=== PATIENT | female | born 1985 | race Caucasian/White ===

== ENCOUNTER 2018-10-19 13:26 | Emergency (ER) | payer BC ==
[~2018-10-19] VITALS: Ht 170.2 cm; Wt 137.0 kg
[2018-10-19 13:26] VITALS: BP_SYST 124
[2018-10-19] MEDS ORDERED: NACL 0.9% 1,000 ML IV ONE (13:45)
[2018-10-19] MEDS ORDERED: MORPHINE 2 MG/ML INJ. SYRINGE IVP ONE (14:00)
[2018-10-19] MEDS ORDERED: DIPHENHYDRAMINE INJ 50 MG/ML VIAL IVP ONE (14:00)
[2018-10-19 14:18] LABS: BASOPHILS # (AUTO) 0.1 K/uL (0.0-0.2); BASOPHILS % (AUTO) 0.7 % (0.0-2.0); EOSINOPHILS # (AUTO) 0.2 K/uL (0.0-0.4); EOSINOPHILS % (AUTO) 1.4 % (0.0-4.0); HEMATOCRIT 27.5 % (36-48); HEMOGLOBIN 9.1 g/dL (12.0-16.0); LYMPHOCYTES # (AUTO) 5.4 K/uL (1.0-5.5); LYMPHOCYTES % (AUTO) 30.6 % (20.5-51.5); MEAN CORPUSCULAR HEMOGLOBIN 30 pg (27-31); MEAN CORPUSCULAR HGB CONC 33 % (32-36); MEAN CORPUSCULAR VOLUME 90 fL (79.0-98.0); MONOCYTES # (AUTO) 0.9 K/uL (0.0-1.0); MONOCYTES % (AUTO) 5.3 % (1.7-9.3); NEUTROPHILS # (AUTO) 10.9 K/uL (1.8-7.7); PLATELET COUNT (AUTO) 490 K/uL (130-430); RED BLOOD CELL COUNT(AUTO) 3.05 MIL/uL (4.2-6.2); RED CELL DISTRIBUTION WIDTH 13.3 % (9.0-15.0); WHITE BLOOD COUNT (AUTO) 17.7 K/uL (4.8-10.8)
[2018-10-19 14:27] LABS: CALCIUM 9.1 mg/dL (8.4-11.0); CREATININE 0.76 mg/dL (0.55-1.30); POTASSIUM 3.5 mmol/L (3.5-5.1)
[2018-10-19 14:32] LABS: ALBUMIN 3.3 g/dL (3.4-4.8); TOTAL BILIRUBIN 0.2 mg/dL (0.0-1.0)
[2018-10-19] MEDS ORDERED: cefTRIAXone 1 GM IVPB PREMIX 50 ML IV ONE (15:15)
[2018-10-19 16:28] LABS: BILIRUBIN,URINE NEGATIVE (NEGATIVE); BLOOD, URINE 2+ (NEGATIVE); CLARITY/URINE HAZY (CLEAR); COLOR,URINE YELLOW (YELLOW); GLUCOSE,URINE NEGATIVE (NEGATIVE); KETONES,URINE NEGATIVE (NEGATIVE); LEUKOCYTE ESTERASE ,URINE NEGATIVE (NEGATIVE); NITRITE, URINE NEGATIVE (NEGATIVE); PROTEIN URINE NEGATIVE (NEGATIVE); UROBILINOGEN,URINE 0.2 (0.2-1.0)
[2018-10-19 16:52] LABS: BACTERIA,URINE MODERATE /HPF (None Seen); MUCUS,URINE 2+ /LPF (None Seen)
[2018-10-19 17:58] VITALS: BP_SYST 134
== END 2018-10-19 17:58 | disposition home or self-care (01) ==
LOC: SED 13:26
DX: K60.2 Anal fissure, unspecified (principal); N39.0 Urinary tract infection, site not specified; D64.9 Anemia, unspecified; R19.7 Diarrhea, unspecified; R03.0 Elevated blood-pressure reading, without diagnosis of hypertension; Z88.5 Allergy status to narcotic agent; Z90.49 Acquired absence of other specified parts of digestive tract
CPT/HCPCS: 36415; 74176; 80053; 81000; 81025; 82272; 83690; 85025; 87040; 87086; 96361; 96365; 96375; 99284; J0696; J1200; J2270; J7030

== ENCOUNTER 2018-11-07 15:19 | Inpatient (IN) | payer BC ==
[~2018-11-07] VITALS: Ht 170.2 cm; Wt 135.6 kg
[2018-11-07 15:39] VITALS: BP_SYST 111
--- NOTE | 2018-11-07 15:44 | NUR ---
Patient to ER bed 2 to gown for evaluation. Side rails up. Report given to Bill STAPLES.
--- NOTE | 2018-11-07 16:00 | NUR ---
PT PRESENTS TO ED FOR EVALAUTION OF LOW H&H. PT H/O ANEMIA.
--- NOTE | 2018-11-07 16:05 | NUR ---
ER at bedside examining patient.
--- NOTE | 2018-11-07 16:40 | NUR ---
# 20 gauge angiocath placed to LAC. Use of asceptic technique. Opsite placed over site. Blood return noted. Flushed with 10 cc of normal saline. No evidence of infiltration noted. Patient tolerated well.
[2018-11-07 17:19] LABS: PROTHROMBIN TIME 10.4 SECS (9.5-12.5)
[2018-11-07 17:21] LABS: CALCIUM 8.7 mg/dL (8.4-11.0); CREATININE 0.73 mg/dL (0.55-1.30); POTASSIUM 3.5 mmol/L (3.5-5.1)
[2018-11-07 17:23] LABS: ALBUMIN 2.8 g/dL (3.4-4.8); TOTAL BILIRUBIN 0.2 mg/dL (0.0-1.0)
[2018-11-07 17:25] LABS: BASOPHILS # (AUTO) 0.1 K/uL (0.0-0.2); BASOPHILS % (AUTO) 0.4 % (0.0-2.0); EOSINOPHILS # (AUTO) 0.2 K/uL (0.0-0.4); EOSINOPHILS % (AUTO) 1.2 % (0.0-4.0); LYMPHOCYTES % (AUTO) 25.8 % (20.5-51.5); MEAN CORPUSCULAR HEMOGLOBIN 28 pg (27-31); MEAN CORPUSCULAR HGB CONC 31 % (32-36); MEAN CORPUSCULAR VOLUME 90 fL (79.0-98.0); MONOCYTES # (AUTO) 0.7 K/uL (0.0-1.0); MONOCYTES % (AUTO) 4.6 % (1.7-9.3); NEUTROPHILS # (AUTO) 10.4 K/uL (1.8-7.7); PLATELET COUNT (AUTO) 543 K/uL (130-430); RED CELL DISTRIBUTION WIDTH 16.8 % (9.0-15.0); WHITE BLOOD COUNT (AUTO) 15.4 K/uL (4.8-10.8)
[2018-11-07 17:28] LABS: HEMOGLOBIN 6.8 g/dL (12.0-16.0)
[2018-11-07 17:29] LABS: HEMATOCRIT 21.7 % (36-48)
--- NOTE | 2018-11-07 18:02 | NUR ---
CONSENT FOR BLOOD SIGNED
--- NOTE | 2018-11-07 18:03 | NUR ---
Patient will be admitted to care of . Admitted to MED/SURG unit. Will go to room 124A. Belongings list completed. Summary report printed. Report will be given at bedside.
--- NOTE | 2018-11-07 18:33 | NUR ---
CONSULTATION PAGED REASON FOR CONSULTATION:GI BLEED WAS CONSULT CALLED?Y PERSON WHO WAS NOTIFIED:KYM LECHGUA CONSULTING PHYSICIAN:DOT G[employer]ING ( LEATHER PATCHER) CONTOUR SANDER SPECIALTY:GI CONTOUR SANDER PHONE NUMBER:[phone] REQUESTING PHYSICIAN:NAMRATA PEÑALOZA
--- NOTE | 2018-11-07 18:35 | NUR ---
admission: Received from ER on a gurney with the diagnosis of GI bleed. Patient is oriented x4. Oriented to room. Call light within reach.
[2018-11-07 18:50] VITALS: BP_SYST 127
--- NOTE | 2018-11-07 18:50 | NUR ---
OPENING NOTES, RECEIVED PT FROM E.R. PT IS AAOX4, DENIES PAIN. NO SOB, PT VITALS WNL. PT IS PALE. ADMITTED FOR LOW HGB OF 6.8. PT WILL NEED 2 UNITS OF PRBC. PT PROVIDED WITH WATER AND JELLO AND JUICE. SAFETY PRECAUTION IN PLACE, CALL LIGHT IN REACH. BED IN LOW POSITION. CALL LIGHT IN REACH. ENCOURAGED TO CALL NURSES FOR ASSIST AND PAIN MEDS. WILL ENDORSE TO NIGHT NURSE.
--- NOTE | 2018-11-07 19:10 | NUR ---
PATIENT ENDORSED TO NIGHT RN TANK. INFORMED TANK THAT PT ADMISSION ASSESSMENT HAS NOT BEEN DONE AND PT NEEDS TO BE TRANSFUSION OF 2 UNITS RBC.
[2018-11-07 19:44] LABS: BILIRUBIN,URINE NEGATIVE (NEGATIVE); BLOOD, URINE NEGATIVE (NEGATIVE); CLARITY/URINE CLEAR (CLEAR); COLOR,URINE YELLOW (YELLOW); GLUCOSE,URINE NEGATIVE (NEGATIVE); KETONES,URINE NEGATIVE (NEGATIVE); LEUKOCYTE ESTERASE ,URINE NEGATIVE (NEGATIVE); NITRITE, URINE NEGATIVE (NEGATIVE); PROTEIN URINE NEGATIVE (NEGATIVE); UROBILINOGEN,URINE 0.2 (0.2-1.0)
--- NOTE | 2018-11-07 19:52 | NUR ---
Pt is fully awake, alert and oriented x4. No acute distress noted and no c/o pain or discomfort. Saline locks in RAC and LAC are without any signs of infiltration. Awaiting availability of blood in Blood Bank for transfusion tonight. Fall and safety precautions are in place. Call light is with pt and bed is in the lowest and locked positions.
[2018-11-07 20:00] VITALS: BP_SYST 107
[2018-11-07] MEDS ORDERED: ONDANSETRON HCL 4 MG/2 ML VIAL IVP PRN (21:15)
[2018-11-07] MEDS ORDERED: ALBUTEROL SULFATE 0.083% 2.5 MG/3 ML VIAL.NEB INH PRN (21:15)
[2018-11-07 21:31] VITALS: BP_SYST 127
--- NOTE | 2018-11-07 21:46 | NUR ---
PAGED I PAGED DR. FAIRCHILD I SPOKE WITH BETH LECHUGA
--- NOTE | 2018-11-07 21:50 | NUR ---
Spoke with Dr. Reaves regarding the necessity for blood cultures prior to starting Rocephin and Dr. Reaves stated no blood cultures needed. She also changed Rocephin from Q 24hrs to one time dose only.
[2018-11-07] MEDS ORDERED: cefTRIAXone 1 GM IVPB PREMIX 50 ML IV ONE ×2 (21:59→22:00)
[2018-11-07] MEDS ORDERED: cefTRIAXone 1 GM IVPB PREMIX 50 ML IV SCH (22:00)
--- NOTE | 2018-11-07 22:00 | NUR ---
Pt informed she is to have nothing by mouth per MD's new order and pt verbalized understanding. NPO cone placed on pt's bedside table.
[2018-11-07] MEDS: NACL 0.9% 1,000 ML IV SCH (22:03)
[2018-11-07] MEDS: PANTOPRAZOLE SODIUM 40 MG/VIAL (PROTONIX) IVP SCH (22:04)
[2018-11-07] MEDS ORDERED: PANTOPRAZOLE SODIUM 40 MG/VIAL (PROTONIX) ONE (22:11)
--- NOTE | 2018-11-07 22:50 | NUR ---
BT INITIATION: Consent signed per agreeing to administration of blood. Blood has been typed and crossmatched. Blood sent from blood bank. Information on unit of blood checked against patient wristband at bedside by two nurses. All information matched. Patient informed of potential complications associated with blood transfusion. Informed of possible transfusion reaction symptoms. Aware of need to notify nurse at once of itching, shortness of breath, flushing, feeling of impending doom, or other symptoms not previously present. Vital signs taken within 5 minutes prior to initiation of transfusion. RN will remain with patient for first 15 minutes of transfusion at which time vital signs will be re-assessed. Addendum: 11/07/18 at 2306 by Chetna Manzo RN Blood transfusion started at 2245.
--- NOTE | 2018-11-07 23:00 | NUR ---
Blood transfusion is in progress and no transfusion reaction noted. VSS. IV site is without any signs of infiltration. Call light is with pt and bed is in the lowest and locked positions.
--- NOTE | 2018-11-08 | NUR ---
No distress noted at this time. Blood transfusion is in progress.
--- NOTE | 2018-11-08 01:30 | NUR ---
First unit PRBC completely transfused and no transfusion reaction noted.
--- NOTE | 2018-11-08 01:40 | NUR ---
Second unit PRBC transfusion started. IV site is without any signs of infiltration. Consent was signed per agreeing to administration of blood. Blood has been typed and crossmatched. Blood sent from blood bank. Information on unit of blood checked against patient wristband at bedside by two nurses. All information matched. Patient informed of potential complications associated with blood transfusion. Informed of possible transfusion reaction symptoms. Aware of need to notify nurse at once of itching, shortness of breath, flushing, feeling of impending doom, or other symptoms not previously present. Vital signs taken within 5 minutes prior to initiation of transfusion. RN will remain with patient for first 15 minutes of transfusion at which time vital signs will be re-assessed.
--- NOTE | 2018-11-08 01:55 | NUR ---
Second unit of PRBC transfusion is in progress and no transfusion reaction noted. VSS. IV site is without any signs of infiltration. Call light is with pt and bed is in the lowest and locked positions.
[2018-11-08 02:36] VITALS: BP_SYST 110
--- NOTE | 2018-11-08 04:15 | NUR ---
Second unit PRBC completely transfused and no transfusion reaction noted. IVF of NS was resumed at 125ml/hr. Fall and safety precautions are in place.
--- NOTE | 2018-11-08 06:25 | NUR ---
Pt is awake and resting quietly in bed. IVF is infusing well in LAC. No c/o pain or discomfort. Will endorse to day shift nurse.
[2018-11-08 06:31] LABS: ALBUMIN 2.4 g/dL (3.4-4.8); CALCIUM 7.9 mg/dL (8.4-11.0); CREATININE 0.71 mg/dL (0.55-1.30); TOTAL BILIRUBIN 0.4 mg/dL (0.0-1.0)
[2018-11-08 06:34] LABS: BASOPHILS # (AUTO) 0.1 K/uL (0.0-0.2); BASOPHILS % (AUTO) 0.5 % (0.0-2.0); EOSINOPHILS # (AUTO) 0.2 K/uL (0.0-0.4); EOSINOPHILS % (AUTO) 1.8 % (0.0-4.0); HEMATOCRIT 23.9 % (36-48); LYMPHOCYTES # (AUTO) 4.5 K/uL (1.0-5.5); LYMPHOCYTES % (AUTO) 32.8 % (20.5-51.5); MEAN CORPUSCULAR HEMOGLOBIN 30 pg (27-31); MEAN CORPUSCULAR HGB CONC 33 % (32-36); MEAN CORPUSCULAR VOLUME 90 fL (79.0-98.0); MONOCYTES % (AUTO) 7.1 % (1.7-9.3); NEUTROPHILS % (AUTO) 57.8 % (40.0-70.0); PLATELET COUNT (AUTO) 437 K/uL (130-430); RED BLOOD CELL COUNT(AUTO) 2.67 MIL/uL (4.2-6.2); RED CELL DISTRIBUTION WIDTH 16.5 % (9.0-15.0); WHITE BLOOD COUNT (AUTO) 13.8 K/uL (4.8-10.8)
[2018-11-08 07:35] LABS: HEMOGLOBIN 7.9 g/dL (12.0-16.0)
[2018-11-08 08:00] VITALS: BP_SYST 100
--- NOTE | 2018-11-08 08:00 | NUR ---
initial notes rec patient asleep but arousable to stimuli.ivf infusing well on the l ac. no infiltration noted. resp easy and unlabored. bed to the lowest position and side rails up and locked. call light within reached and knows when to call for assistance. denies pain.
--- NOTE | 2018-11-08 10:00 | NUR ---
rounds due meds given and seen by dr huerta and with orders.
--- NOTE | 2018-11-08 12:00 | NUR ---
rounds seen by dr clayton and with orders. ambulates on the hallway at intervals.
[2018-11-08] MEDS: PANTOPRAZOLE SODIUM 40 MG/VIAL (PROTONIX) IVP SCH ×2 (12:32→22:27)
[2018-11-08] MEDS: NACL 0.9% 1,000 ML IV SCH ×2 (12:32→13:11)
[2018-11-08 12:36] VITALS: BP_SYST 109
[2018-11-08] MEDS: LORazepam 2 MG/ML VIAL IVP PRN ×2 (12:51→18:14)
--- NOTE | 2018-11-08 14:00 | NUR ---
rounds seen by dr gallardo.
--- NOTE | 2018-11-08 15:40 | NUR ---
rounds blood transfusion started. explained to patient to watch out for blood transfusion reaction . checked blood with elizabeth rn at bedside.
--- NOTE | 2018-11-08 16:00 | NUR ---
rounds no untoward reaction noted form the blood transfusion. no sob noted.
[2018-11-08 16:03] VITALS: BP_SYST 112
--- NOTE | 2018-11-08 18:20 | NUR ---
rounds 2nd unit of blood was completed. no untoward reaction noted.
--- NOTE | 2018-11-08 18:40 | NUR ---
closingnotes 2nd unit of blood started. reviewed with patient re blood transfusion reaction. no sob noted. ambulated to the br. call light within reached.
--- NOTE | 2018-11-08 19:51 | NUR ---
Pt was received lying in bed fully awake, alert and oriented x4. No acute distress noted and no c/o pain or discomfort. Blood transfusion is in progress via LAC without any signs of infiltration at the IV site. No transfusion reaction noted. Pt was instructed on nothing by mouth after midnight for surgery tomorrow and pt verbalized understanding. Fall and safety precautions are in place. Call light is with pt and bed is in the lowest and locked positions.
[2018-11-08 20:00] VITALS: BP_SYST 118
--- NOTE | 2018-11-08 21:45 | NUR ---
PRBC completely transfused and no transfusion reaction noted. IV site is without any signs of infiltration. IVF of NS was resumed at 125ml/hr. Fall and safety precautions are in place.
[2018-11-09] VITALS (11 sets, daily range): BP systolic 108–138
--- NOTE | 2018-11-09 | NUR ---
IVF is infusing well in [facility]. Fall and safety precautions are in place.
[2018-11-09] MEDS: NACL 0.9% 1,000 ML IV SCH ×4 (02:07→21:11)
--- NOTE | 2018-11-09 02:30 | NUR ---
Sleeping without any distress. IVF is infusing well.
--- NOTE | 2018-11-09 04:30 | NUR ---
Sleeping comfortably in bed. Fall and safety precautions are in place. IVF is infusing well in [facility].
--- NOTE | 2018-11-09 06:30 | NUR ---
Pt is awake and resting comfortably in bed. IVF is infusing well in LAC. No c/o pain or discomfort at this time. Fall and safety precautions are in place. Will endorse to day shift nurse.
[2018-11-09] MEDS ORDERED: fentaNYL CITRATE/PF 100 MCG/2 ML AMP IVP PRN ×2 (09:00)
[2018-11-09] MEDS ORDERED: ONDANSETRON HCL 4 MG/2 ML VIAL IVP PRN (09:00)
--- NOTE | 2018-11-09 09:53 | NUR ---
11/09/2018 0954 This patient is sitting up in a chair. Relatives are at the bedside. She is alert and orientedX4, ambulatory. Vital signs are obtained: bp 138/85, HR 89, resp 20, temp 97.3, oxygen saturation 100. No s/s of distress. Labs reviewed for 11/08: wbc 13.8, h/h, 7.9/23.9 pt 10.4, INR 1.0. Surgery was phoned with abnormal results. The HS nurse stated that she had made an attempt prior to leaving this morning to reach the physician. No lab order for today. Staff in surgery stated that as soon as the anesthesiologist arrived, she would send him up to assess the patient.
[2018-11-09] MEDS: LORazepam 2 MG/ML VIAL IVP PRN (10:24)
[2018-11-09] MEDS: PANTOPRAZOLE SODIUM 40 MG/VIAL (PROTONIX) IVP SCH ×2 (10:29→22:03)
--- NOTE | 2018-11-09 10:30 | NUR ---
11/09/2018 1031 This patient requested ativan. She was given the prescribed dose. She is receiving the enema per the CN at this time.
[2018-11-09 11:00] LABS: BASOPHILS % (AUTO) 0.2 % (0.0-2.0); EOSINOPHILS # (AUTO) 0.3 K/uL (0.0-0.4); EOSINOPHILS % (AUTO) 2.2 % (0.0-4.0); HEMATOCRIT 31.1 % (36-48); HEMOGLOBIN 10.2 g/dL (12.0-16.0); LYMPHOCYTES # (AUTO) 3.4 K/uL (1.0-5.5); LYMPHOCYTES % (AUTO) 25.8 % (20.5-51.5); MEAN CORPUSCULAR HEMOGLOBIN 30 pg (27-31); MEAN CORPUSCULAR HGB CONC 33 % (32-36); MEAN CORPUSCULAR VOLUME 90 fL (79.0-98.0); MONOCYTES # (AUTO) 0.7 K/uL (0.0-1.0); MONOCYTES % (AUTO) 5.3 % (1.7-9.3); NEUTROPHILS # (AUTO) 8.8 K/uL (1.8-7.7); NEUTROPHILS % (AUTO) 66.5 % (40.0-70.0); PLATELET COUNT (AUTO) 466 K/uL (130-430); RED BLOOD CELL COUNT(AUTO) 3.45 MIL/uL (4.2-6.2); RED CELL DISTRIBUTION WIDTH 16.1 % (9.0-15.0); WHITE BLOOD COUNT (AUTO) 13.2 K/uL (4.8-10.8)
[2018-11-09] MEDS ORDERED: NA PHOS,M-B/NA PHOS,DI-BA 118 ML (FLEET ENEMA) RC ONE (11:00)
--- NOTE | 2018-11-09 11:52 | NUR ---
OR: Patient is picked up to OR via a bed with stable condition.
--- NOTE | 2018-11-09 12:00 | NUR ---
11/09/2018 1200 Received report from the CN that this patient was taken to surgery. She is off the unit at this time. Prior to leaving she received stat lab draw.
[2018-11-09] MEDS ORDERED: BUPIVACAINE LIPOSOME/PF 266 MG/20 ML VIAL INFIL ONE (13:56)
[2018-11-09] MEDS ORDERED: fentaNYL CITRATE/PF 100 MCG/2 ML AMP ONE (14:15)
[2018-11-09] MEDS ORDERED: HYDROmorphone 1 MG INJ. 1 MG/ML AMPUL IM PRN (14:15)
[2018-11-09] MEDS ORDERED: LR 1,000 ML IV.SOLN IV ONE (14:15)
[2018-11-09] MEDS ORDERED: CEFAZOLIN 2 GM IVPB PREMIX 50 ML IV ONE (14:15)
[2018-11-09] MEDS ORDERED: BUPIVACAINE /EPINEPHRINE/PF 0.25% 30 ML VIAL INJ ONE (14:15)
[2018-11-09] MEDS ORDERED: NS 50 ML BAG IV ONE (14:15)
[2018-11-09] MEDS ORDERED: MIDAZOLAM HCL 5 MG/ML VIAL (VERSED) IV ONE (14:15)
[2018-11-09] MEDS ORDERED: NS IRRIG SOLN 1000 ML IR ONE (14:15)
--- NOTE | 2018-11-09 15:10 | NUR ---
11/09/2018 1510 The CN has received report from the procedure nurse. The patient has returned to her room. No s/s of distress noted.
--- NOTE | 2018-11-09 15:38 | NUR ---
Dietitian Recommendations * Consider advance diet if/when medically appropriate (regular diet) ITZEL, RD Please refer to Nutrition Assessment for details. Addendum: 11/09/18 at [address] Amended: Links added.
[2018-11-09] MEDS: HYDROcodone/ACETAMIN 5-325 MG TAB (NORCO/ VICODIN) PO PRN (17:44)
--- NOTE | 2018-11-09 19:06 | NUR ---
11/09/20181899 This patient has received norco for pain. She states that her pain has come down to a 3 from a 5. Upon assessment of her IV, it may need replacing. The patient states that she will need to do it later. She had LR that was hanging to gravity since arriving from OR. There is an order that the IVF may be discontinued once the patient is tolerating diet/fluids, which she is. However, she will not be able to receive dilaudid should she need it for breakthrough pain until he IV is functioning. f/u with HS is planned. Also, the patient's father is saying that the mother has called to say that the pharmacy cannot fill the patient's paper prescription for norco because the pharmacy cannot read the dosage written on the prescription. This will need to be followed up with the physician tomorrow.
--- NOTE | 2018-11-09 19:30 | NUR ---
Late entry due to pt care Pt is lying in bed fully awake, alert and oriented x4. No acute distress noted and no c/o pain or discomfort. Rectal dressing is dry and intact with no evidence of active bleeding. IVF already saline locked in LAC. Pt stated she is tolerating oral fluids very well and she does not need IVF. Fall and safety precautions are in place. Call light is with pt and bed is in the lowest and locked positions.
--- NOTE | 2018-11-09 21:10 | NUR ---
Saline lock in LAC noted to be infiltrated and the Angiocath was removed intact. New IV line was started in right hand with Angiocath 22G and saline locked. No rectal bleeding noted. Fall and safety precautions are in place.
--- NOTE | 2018-11-09 22:03 | NUR ---
Pt c/o 09/14 rectal pain. Pt stated inner rectal dressing fell out when she was on the toilet urinating. No rectal bleeding noted. Outer rectal dressing is dry and intact. Pt was offered [place] by mouth for rectal pain, but pt declined. Pt requested Morphine instead of Atlantic. Pt's mother is at pt's bedside. Morphine 2mg was given IM as ordered by MD. Pt was instructed to call for assistance before getting out of bed if she feels dizzy or drowsy and pt verbalized understanding. Pt's mother stated she is spending the night at pt's bedside and will assist pt if she needs assistance. A recliner was given to pt's mother.
--- NOTE | 2018-11-09 23:00 | NUR ---
Pt is sleeping comfortably in bed. Call light is with pt and bed is in the lowest and locked positions. Pt's mother is at the bedside.
[2018-11-10 01:05] VITALS: BP_SYST 119
[2018-11-10] MEDS: HYDROcodone/ACETAMIN 5-325 MG TAB (NORCO/ VICODIN) PO PRN ×3 (02:05→10:31)
--- NOTE | 2018-11-10 02:05 | NUR ---
[place] 5/325mg 2 tablets were given po for c/o rectal pain. No bleeding noted. Dressing dry and intact.
--- NOTE | 2018-11-10 04:00 | NUR ---
Pt is sleeping without any distress noted. Pt's mother is sleeping in a recliner at the bedside.
[2018-11-10] MEDS: NACL 0.9% 1,000 ML IV SCH (05:11)
--- NOTE | 2018-11-10 06:12 | NUR ---
Pt was given 2 tablets [place] 5/325mg po for c/o rectal pain.
--- NOTE | 2018-11-10 06:30 | NUR ---
Outer rectal dressing was removed as ordered by MD. No rectal bleeding noted. Pt was given stockinet panty and parvin pads. Pt stated she will put them on when she goes to the toilet to urinate. No acute distress noted at this time. Saline lock is intact in . Will endorse to day shift nurse.
[2018-11-10 08:00] VITALS: BP_SYST 102
--- NOTE | 2018-11-10 08:00 | NUR ---
initial notes rec patient sleep but arousable to stimuli. ivl on the r hand intact. no infiltration noted. bed to the lowest position and side rails up and locked. call light within reached and knows when to call for assistance. denies pain at this time.
[2018-11-10] MEDS: PANTOPRAZOLE SODIUM 40 MG/VIAL (PROTONIX) IVP SCH (09:25)
--- NOTE | 2018-11-10 10:00 | NUR ---
rounds seen by dr bryson.
[2018-11-10 12:45] VITALS: BP_SYST 109
--- NOTE | 2018-11-10 13:00 | NUR ---
rounds seen by dr clayton and alo for d/c.
[2018-11-10 13:38] VITALS: BP_SYST 102
--- NOTE | 2018-11-11 14:15 | NUR ---
closing notes late entry pt was discharged after seen by dr artis clayton. id abd and heplock was removed. no bleeding noted. instructe re faiza w florian clayton in 10 days and with med rec. no sob noted. ambulated with family . stable and needs attended. Addendum: 11/11/18 at 1531 by Mandy Woodson RN dated should be for
== END 2018-11-10 15:55 | disposition home or self-care (01) | DRG 348 ==
LOC: SED 15:19 → SMU 17:55
PROVIDERS: ADMIT Internal Medicine; ATTEND Internal Medicine
PROC: 30233N1 Transfusion of Nonautologous Red Blood Cells into Peripheral Vein, Percutaneous Approach (ICD-10-PCS; principal; 2018-11-07)
PROC: 06BY0ZC Excision of Hemorrhoidal Plexus, Open Approach (ICD-10-PCS; 2018-11-09)
DX: K64.8 Other hemorrhoids (principal); D62 Acute posthemorrhagic anemia; K57.90 Diverticulosis of intestine, part unspecified, without perforation or abscess without bleeding; K76.0 Fatty (change of) liver, not elsewhere classified; K74.60 Unspecified cirrhosis of liver; K64.4 Residual hemorrhoidal skin tags; Z88.5 Allergy status to narcotic agent; Z79.899 Other long term (current) drug therapy; Z80.3 Family history of malignant neoplasm of breast
CPT/HCPCS: 36415; 80053; 81003; 85025; 85610-TC; 86886; 86900; 86901; 86920; 87081; 88304; 99285; C9113; C9290; J0690; J0696; J1170; J2060; J2250; J3010; J3490; J7030; J7040; J7050; J7120; P9021